=== PATIENT | female | born 1995 | race Caucasian/White ===

== ENCOUNTER → 2017-02-11 19:00 | Observation (INO) ==
[2017-02-11 17:45] LABS: Amphetamine Screen,Urine Negative ng/mL (Cutoff=1000); Barbiturate Screen,Urine Negative ng/mL (Cutoff=200); Benzodiazepines Screen,Urine Negative ng/mL (Cutoff=200); Cannabinoid Screen,Urine Negative ng/mL (Cutoff = 50); Cocaine Screen,Urine Negative ng/mL (Cutoff= 300); Opiate Screen,Urine Negative ng/mL (Cutoff=300); Phencyclidine Screen,Urine Negative ng/mL (Cutoff=25)
--- NOTE | 2017-02-11 17:48 | OB/GYN Progress Note ---
Date of Encounter: 02/11/17 Time of Encounter: 17:42 - Assessment and Plan (1) Uterine contractions during Current Visit: Yes Status: Acute Patient with reassuring and reactive heart tracing. -We will monitor for cervical changes. -If cervical changes are progressive, we will admit to labor and delivery. -Urine drug screen (2) 38 weeks gestation of Current Visit: Yes Status: Acute Subjective - Subjective Principal diagnosis: Contractions/Cramps Interval history: 21 yo at [id number] presents with lower abdominal cramping and contractions. She reports movement. She denies vaginal bleeding or loss of fluid. She does report a headache, however, she denies any elevations in blood pressure. She denies any right upper quadrant pain or visual disturbances. She denies nausea vomiting, fever, or chills. He denies dysuria. Patient is group B strep negative. Hepatitis B surface antigen negative HIV nonreactive Treponema pallidum negative -Rubella non-immune -Varicella-zoster non-immune -A positive, negative antibody screen. Antepartum ROS: movement normal, contractions, no loss of fluid, no vaginal bleeding Objective - Vital Signs Vital Signs: Intake and Output 02/11/17 02/11/17 02/11/17 07:59 15:59 23:59 Other: Weight 94.347 kg Patient Weight 02/11/17 23:59 Weight 94.347 kg - Exam FHR: category 1 FHR comments: Heart tracing baseline 145, moderate variability with 15 x 15 accelerations. Auscultation: bilateral: normal Abdomen: Present: normal appearance, soft, gravid Cervical dilation: 3 Cervix effacement: 80 station: -1
== END | disposition home or self-care (01) ==
LOC: 1NENULAB
PROVIDERS: ADMIT Student in an Organized Health Care Education/Training Program; ATTEND Student in an Organized Health Care Education/Training Program

== ENCOUNTER 2017-02-14 02:18 | Inpatient (IN) ==
[2017-02-14] MEDS ORDERED: *HR* Nalbuphine 20 MG/ML AMPUL IVP PRN (04:28)
[2017-02-14] MEDS ORDERED: Famotidine 20 MG/2 ML VIAL IVP PRN (04:28)
[2017-02-14] MEDS ORDERED: Metoclopramide 10 MG/2 ML VIAL IVP PRN (04:28)
[2017-02-14] MEDS ORDERED: Naloxone 0.4 MG/ML INJ IVP PRN (04:28)
[2017-02-14] MEDS ORDERED: miSOPROStol 25 MCG TABLET VG PRN (04:28)
[2017-02-14 05:09] LABS: Basophils % 0.3 %; Eosinophils # 0.1 K/mcL (0.0-0.6); Eosinophils % 0.8 %; Hematocrit 34.3 % (35.3-44.9); Hemoglobin 11.4 g/dL (11.5-15.4); Immature Granulocytes % 0.7 % (0-4); Lymphocytes # 2.9 K/mcL (0.6-4.6); Lymphocytes % 31.8 %; Mean Corpuscular HGB Conc 33.2 g/dL (31.6-35.5); Mean Corpuscular Hemoglobin 29.8 pg (28.0-33.3); Mean Corpuscular Volume 89.6 fL (83.0-100.0); Monocytes # 0.7 K/mcL (0.0-1.3); Monocytes % 7.8 %; Neutrophils # 5.2 K/mcL (1.6-8.9); Platelet Count 298 K/mcL (140-400); Red Blood Count 3.83 M/mcL (3.82-4.97); Red Cell Distribution Width 12.9 % (11.5-14.5); Segmented Neutrophils % 58.6 %
[2017-02-14 05:15] LABS: Amphetamine Screen,Urine Negative ng/mL (Cutoff=1000); Barbiturate Screen,Urine Negative ng/mL (Cutoff=200); Benzodiazepines Screen,Urine Negative ng/mL (Cutoff=200); Cannabinoid Screen,Urine Negative ng/mL (Cutoff = 50); Cocaine Screen,Urine Negative ng/mL (Cutoff= 300); Opiate Screen,Urine Negative ng/mL (Cutoff=300); Phencyclidine Screen,Urine Negative ng/mL (Cutoff=25)
--- NOTE | 2017-02-14 07:26 | OB/GYN History & Physical ---
Date of Encounter: 02/14/17 Time of Encounter: 07:24 Assessment and Plan (1) Encounter for planned induction of labor Current visit: Yes Status: Acute Will admit to labor and delivery for IOL/ GBS - -FHT 120 bpm baseline, category 1 tracing with accelerations 15x15 and moderate variability -PO cytotec -IV fluids -Nubain/Epidural for pain as needed -expectant management (2) 39 weeks gestation of Current visit: Yes Status: Acute History of Present Illness Chief complaint: Elective Induction of Labor HPI: Ms. Mtz is a 21 year old female at 39 weeks of gestation with no PMHx or Hx of complications during presents to [facility] for IOL. Patient is resting comfortably this AM. She denies any fluid leakage or vaginal bleeding. She states she thinks she is having contractions every 10 minutes which are not painful. She is planning to breastfeed and to receive an epidural. Patient denies headache, nausea or vomiting, visual disturbances, or dysuria. A+ Negative Antibodies GBS negative HIV negative Hep B surface antigen negative Treponema Pallidum negative Rubella non-immune Varicella non-immune Past Med Surg Social Fam HX - Past Medical History Attestation: Yes The following information was validated with the patient. Source: patient Medical history: no medical history Psychiatric history: no psych history - Past Surgical History Surgical History: other (tonsillectomy this morning) - Social History Smoking Status: Former smoker Smokeless Tobacco Status: No Alcohol use: none Drug use: none - Family History Mother Adopted: No Age: 41 Living Status: Still Living Hx Family Respiratory Disorders: Yes (asthma) Hx Family Cancer: Yes (uterine cancer) Obstetrical History - Pregnancies : 1 Para: 0 Term: 0 : 0 Ab's: 0 Livin - History/Complications History/Complications: Patient reports placental previa early in this that has since resolved. Medications and Allergies Vit Calc,Iron,Folic [ Vitamins] 1 tab PO DAILY 02/11/17 [ History] 3 Allergy/AdvReac Type Severity Reaction Status Date / Time Cefprozil Allergy Nausea Verified 02/11/17 16:56 Review of System OB All systems PM: reviewed and no additional remarkable complaints except as stated - Constitutional Constitutional ROS IM: no chills, no fever(s) - Cardiovascular Cardiovascular: no dyspnea, no lightheadedness - Respiratory Respiratory: no cough, no dyspnea - Gastrointestinal Gastrointestinal: heartburn, no abdominal pain, no nausea - Neurological Nerological: no other visual disturbances Exam - Vital Signs Vital signs: Initial Vital Signs Temp Pulse Resp BP 98.0 F 81 16 131/87 02/14/17 04:50 02/14/17 04:50 02/14/17 04:50 02/14/17 04:50 - Constitutional Constitutional: well developed, well nourished, no acute distress - HEENT HEENT: Mucus Membranes Moist - Lungs Respiratory exam: CTAB - Cardiovascular Cardiovascular exam: RRR, +S1, +S2 - Abdomen Abdomen: Present: bowel sounds normal, gravid, non tender - Extremities Extremities exam: pedal edema (mild bilaterally) Deep Tendon Reflex Grade: 2+ Normal - Cervix Dilation: 1 (per RN) Effacement: 70 (per RN) Station: -3 - Comments Comments: FHT 120 bpm baseline with moderate variability and 15x15 accelerations Results Result Diagrams: 02/14/17 04:56 Abnormal lab results Hgb 11.4 g/dL (11.5-15.4) L 02/14/17 04:56 Hct 34.3 % (35.3-44.9) L 02/14/17 04:56 All other labs normal. - VTE Reasons for not Prescribing Prophylaxis: Treatment not Indicated - Low risk for VTE
--- NOTE | 2017-02-14 07:31 | Anesthesia Evaluation PreOp ---
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: Denies Any Significant HX Other Medical History: Denies Any Significant HX Anesthesia History: No Prior Anesthetic Complications, Past Anesthesia (tonsils , bmt) : Yes (39 plus 1 g1) Alcohol Use: none Drug use: none Medications and Allergies Vit Calc,Iron,Folic [ Vitamins] 1 tab PO DAILY 02/11/17 [ History] 3 Allergy/AdvReac Type Severity Reaction Status Date / Time Cefprozil Allergy Nausea Verified 02/11/17 16:56 - Meds/Allergy Pre-op Review Medications Reviewed: Yes Allergies Reviewed: Yes Beta Blockers on Current Med List: No Anesthesia Results - Labs 02/14/17 04:56 Anesthesia Exam O2 Sat Height 1.57 m Height 1.57 m Weight 94.3 kg Weight 94.3 kg Vital Signs Temp Pulse Resp BP 98.0 F 81 16 131/87 02/14/17 04:50 02/14/17 04:50 02/14/17 04:50 02/14/17 04:50 Height: 62 Weight: 94 - HEENT Pupil (Motor): Pupils equal Mallampati: I Teeth: Normal Oral Opening: Greater than 3 - BUILDING SUPERVISOR LOC: Oriented BUILDING SUPERVISOR Motor: Normal RUE, Normal LUE, Normal RLE, Normal LLE, Normal Face BUILDING SUPERVISOR Sensory: Normal: RUE, LUE, RLE, LLE, Face - Cardiac Rhythm: Regular Murmur: None JVD: No Carotid Bruit: No - Pulmonary Breath Sounds: bilateral Clear Respiratory Effort: Symmetrical Anesthesia Assess/Plan ASA Score: 2 Modified [place] Scale for Level of Consciousness: Cooperative, oriented, and tranquil Anesthetic Plan: Regional Monitoring Plan: Standard Monitors Recovery Plan: PACU
--- NOTE | 2017-02-14 12:55 | OB Labor Progress Note ---
Date of Encounter: 02/14/17 Time of Encounter: 12:54 Labor Progress Note - Subjective Subjective: Patient resting in bed. Discussed POC with patient. Patient denies any questions or concerns. - Cervix Cervix: 3/80/-2 - Heart Tones Heart Tones: 135 bpm moderate variability +15x15 accels no decels noted. Cat. 1 tracing - [place]: irregular contractions - Interventions Interventions: SVE - Plan Plan: Will start Pitocin for labor augmentation.
[2017-02-14] MEDS ORDERED: Oxytocin 20 units/ LR 1000 mL 20 UNIT/1,000 ML BAG IVC SCH (13:00)
[2017-02-14] MEDS ORDERED: Oxytocin 20 units/ LR 1000 mL 20 UNIT/1,000 ML BAG IVC ONE (13:04)
[2017-02-14] MEDS: Ringers Solution, Lactated 1,000 ML IVC SCH ×2 (13:09→20:40)
--- NOTE | 2017-02-14 17:02 | OB Labor Progress Note ---
Date of Encounter: 02/14/17 Time of Encounter: 17:00 Labor Progress Note - Subjective Subjective: patient on the birthing ball, her ctxs are not too painful - Vital Signs Vital Signs: VSS - Cervix Cervix: 3-4cm/80% - Heart Tones Heart Tones: FHT CAT 1 - [place]: Q1-3 - Plan Plan: will hold off on AROM till further dilation, ok for epidural if patient desires, cont going up on pitocin, now @ 4
[2017-02-14] MEDS ORDERED: *HR* Ropivacaine/PF 0.2% 10 ML AMPUL ONE (19:23)
[2017-02-14] MEDS ORDERED: *HR* FentaNYL (PF) 100 MCG/2 ML VIAL ONE (19:23)
[2017-02-14] MEDS ORDERED: Epidural Premix (fent/bupiv) 110 ML EP ONE (19:23)
--- NOTE | 2017-02-14 20:19 | Anesthesia Procedures ---
Date of Encounter: 02/14/17 Time of Encounter: 19:30 Procedures: Anesthesia - Epidural/Spinal Patient ID/Chart reviewed: Yes Patient examined: Yes OB Eval: Gestational age: 39 OB Eval: : 1 OB Eval: Dilated at (cm): 5 OB Eval: Contractions: Non-stressed pattern Consent Obtained: Yes Supplemental Oxygen: None/Room Air Site Prep: Aseptic Technique Patient position: upright Local Anesthetic: Lidocaine 1% Amount of Local Anesthetic used: 3 Touhy Needle Gauge: 18 Touhy Needle Depth (cm): 9 Catheter Depth at Skin (cm): 14 Test Dose (1.5% Lido + Epi): Volume given (mls): 3 Test Dose Result: Negative Loading Dose: Fentanyl (mcg): 100 Loading Dose: Other: 5ml 0.2% ropivicaine, 3ml nss Loading Dose Administered: Thru Touhy Needle Infusion Med: 0.125% Bupivacaine w/ 2 mcg/ml Fentanyl Infusion Rate (mls/hr): [address]: Tegaderm Interspace Used: L3-L4 Loss of Resistance (RJ): Yes Blood: No CSF: No Paresthesia: No Procedure: L3-4 aseptically after multiple passes and failed attempt at L2-3. Good RJ, denied parasthesias, no blood, no heme. FHR unchanged.
--- NOTE | 2017-02-15 01:09 | OB Labor Progress Note ---
Date of Encounter: 02/15/17 Time of Encounter: 01:06 Labor Progress Note - Subjective Subjective: patient fully dilated, heart rate decel that has now resolved with positioning and stopping pitocin - Vital Signs Vital Signs: BP in the mild range, will draw labs PP - Cervix Cervix: fully dilated - Heart Tones Heart Tones: 135/mod albino/+acels/late decel - [place]: Q 1 min - Plan Plan: start pushing, anticipate
[2017-02-15] MEDS ORDERED: *HR* Ropivacaine/PF 0.2% 10 ML AMPUL ONE (02:20)
[2017-02-15] MEDS ORDERED: Epidural Premix (fent/bupiv) 110 ML EP ONE (02:26)
--- NOTE | 2017-02-15 04:01 | OB Labor Progress Note ---
Date of Encounter: 02/15/17 Time of Encounter: 04:00 Labor Progress Note - Subjective Subjective: patient sleeping - Vital Signs Vital Signs: VSS - Cervix Cervix: +1 station - Heart Tones Heart Tones: FHT CAT - Plan Plan: patient labored down, ok to start pushing, anticipate
[2017-02-15] MEDS ORDERED: Lidocaine 1% 20 ML MDV ONE (06:57)
--- NOTE | 2017-02-15 07:52 | OB/GYN Procedure Note ---
Delivery - Delivery Date: 02/15/17 Provider: Igor Ricks Intrapartum events: none, meconium Delivery induction: oxytocin, misoprostol Delivery augmentation: rupture of membranes Delivery monitor: external FHT, external uterine Anesthesia: epidural Estimated Blood Loss: 400 - Repair Episiotomy: none Laceration Description: Perineal - 2nd Degree - Complications Delivery complications: none - Disposition Mom disposition: stable in LDR disposition: stable in LDR - Comments Comments: 21 y/o now delivered a viable female infant via VAVD /2 CAT 2 tracing, weight 7lbs 12oz @ 0727hrs, infant delivered direct OP and resolved to ROP, no nuchal cord, mec noted, placenta delivered @ 0732hrs, 2nd degree perineal laceration repaired with 3-0 vicryl, EBL 400cc, APGARs 6/7, mother and doing very well.
[2017-02-15] MEDS ORDERED: Measles/Mumps/Rubella Vacc 0.5 ML VIAL SQ PRN (07:53)
[2017-02-15] MEDS ORDERED: *HR* HYDROcodone/Acet 5/325 mg TABLET PO PRN (07:53)
[2017-02-15] MEDS ORDERED: Ibuprofen 600 MG TABLET PO PRN (07:53)
[2017-02-15] MEDS ORDERED: *HR* Oxytocin 10 UNIT/ML VIAL IM ONE (07:57)
[2017-02-15] MEDS ORDERED: Ibuprofen 600 MG TABLET PO ONE (07:57)
[2017-02-15] MEDS ORDERED: Oxytocin 20 units/ LR 1000 mL 20 UNIT/1,000 ML BAG IVC SCH (08:00)
[2017-02-15] MEDS ORDERED: Prenatal Vit/FA 1 EACH TABLET PO SCH (09:00)
[2017-02-16 06:53] LABS: Basophils % 0.1 %; Eosinophils # 0.1 K/mcL (0.0-0.6); Eosinophils % 0.7 %; Hematocrit 25.9 % (35.3-44.9); Immature Granulocytes % 0.4 % (0-4); Lymphocytes # 2.6 K/mcL (0.6-4.6); Lymphocytes % 25.4 %; Mean Corpuscular HGB Conc 33.2 g/dL (31.6-35.5); Mean Corpuscular Volume 90.2 fL (83.0-100.0); Mean Platelet Volume 10.8 fL (9.4-12.4); Monocytes # 0.7 K/mcL (0.0-1.3); Monocytes % 7.2 %; Neutrophils # 6.7 K/mcL (1.6-8.9); Platelet Count 168 K/mcL (140-400); Red Blood Count 2.87 M/mcL (3.82-4.97); Red Cell Distribution Width 13.3 % (11.5-14.5); Segmented Neutrophils % 66.2 %
[2017-02-16 06:54] LABS: Hemoglobin 8.6 g/dL (11.5-15.4)
[2017-02-16 08:26] VITALS: BP 118/61
--- NOTE | 2017-02-16 09:11 | Discharge Summary ---
Date of Encounter: 02/16/17 Time of Encounter: 09:08 - Discharge Diagnosis (1) Vaginal delivery Priority: Primary Status: Acute (2) 39 weeks gestation of Priority: Primary Status: Resolved - Discharge Medications Prescriptions: Breast Pump [BREAST PUMP] 1 each PERCUT AD #1 each Home Medications: Vit Calc,Iron,Folic [ Vitamins] 1 tab PO DAILY 02/11/17 [ History] Breast Pump [BREAST PUMP] 1 each PERCUT AD #1 each 02/16/17 [Rx] Allergies/Adverse Reactions: 3 Allergy/AdvReac Type Severity Reaction Status Date / Time Cefprozil Allergy Nausea Verified 02/11/17 16:56 Data Procedures and tests throughout hospitalization: Laboratory Tests 02/14/17 02/14/17 02/16/17 04:56 04:56 06:35 WBC 9.0 10.1 RBC 3.83 2.87 L Hgb 11.4 L 8.6 L D Hct 34.3 L 25.9 L MCV 89.6 90.2 MCH 29.8 30.0 MCHC 33.2 33.2 RDW 12.9 13.3 Plt Count 298 168 MPV 11.0 10.8 Immature Gran % 0.7 0.4 Seg Neutrophils % 58.6 66.2 Lymphocytes % 31.8 25.4 Monocytes % 7.8 7.2 Eosinophils % 0.8 0.7 Basophils % 0.3 0.1 Neutrophils # 5.2 6.7 Lymphocytes # 2.9 2.6 Monocytes # 0.7 0.7 Eosinophils # 0.1 0.1 Basophils # 0.0 0.0 Urine Opiates Screen Negative Ur Barbiturates Screen Negative Ur Phencyclidine Scrn Negative Ur Amphetamines Screen Negative U Benzodiazepines Scrn Negative Urine Cocaine Screen Negative U Marijuana (THC) Screen Negative Labs on day of discharge: Labs from last 24 hours 02/16/17 06:35 WBC 10.1 RBC 2.87 L Hgb 8.6 L D Hct 25.9 L MCV 90.2 MCH 30.0 MCHC 33.2 RDW 13.3 Plt Count 168 MPV 10.8 Immature Gran % 0.4 Seg Neutrophils % 66.2 Lymphocytes % 25.4 Monocytes % 7.2 Eosinophils % 0.7 Basophils % 0.1 Neutrophils # 6.7 Lymphocytes # 2.6 Monocytes # 0.7 Eosinophils # 0.1 Basophils # 0.0 Date of admission: 02/14/17 02:18 Primary care physician: PCP NONE Discharging clinician: Jacquelin Hamm Anticipated date of discharge: 02/16/17 - Patient Status Disposition: Home, Self-Care Condition: Good Functional capacity at discharge: independent ambulation Overall status at discharge: patient is progressing back to baseline - Discharge Instructions Follow Up With: Igor Ricks MD [Partnered Physician] - - Diet and Activity Activity: resume usual activities as tolerated Diet: advance to your usual diet Hospital Course Reason for admission: induction of labor, IUP at term Delivery: Episiotomy: none Laceration: 2nd degree Other procedures: none complications: none Discharge diagnosis: IUP at term delivered baby: female Time Attestation: Total time spent providing and/or coordinating discharge services: Time Spent: Less than 30 minutes Exam - Constitutional Vitals: Temp Pulse Resp BP Pulse Ox 97.9 F 56 16 118/61 100 02/16/17 07:40 02/16/17 07:40 02/16/17 07:40 02/16/17 07:40 02/16/17 03:25 General appearance IM: A&O X 3, no acute distress - Respiratory Respiratory exam: Present: CTAB. Absent: respiratory distress - Cardiovascular Cardiovascular exam IM: Present: RRR. Absent: irregular rhythm - GI/Abdominal GI/Abdominal exam IM: normal bowel sounds - Uterine Tone: Firm Uterus Position: At Umbilicus - Extremities Exam Extremities exam IM: Absent: calf tenderness
== END 2017-02-16 11:21 | disposition home or self-care (01) | DRG 560 ==
LOC: 1NENULAB 02:18 → 1NENUOBS 02-15 10:01
PROVIDERS: ADMIT Student in an Organized Health Care Education/Training Program; ATTEND Student in an Organized Health Care Education/Training Program

== ENCOUNTER 2018-09-16 11:18 | Inpatient (IN) ==
[2018-09-16] MEDS ORDERED: *HR* Nalbuphine 10 MG/ML AMPUL IVP PRN (11:31)
[2018-09-16] MEDS ORDERED: Naloxone 0.4 MG/ML INJ IVP PRN (11:31)
[2018-09-16] MEDS ORDERED: Ondansetron 4 MG/2 ML VIAL IVP PRN (11:31)
[2018-09-16] MEDS ORDERED: Famotidine 20 MG/2 ML VIAL IVP PRN (11:31)
[2018-09-16] MEDS ORDERED: Lidocaine 1% 20 ML MDV INFILT PRN (11:31)
[2018-09-16] MEDS ORDERED: Metoclopramide 10 MG/2 ML VIAL IVP PRN (11:31)
[2018-09-16] MEDS ORDERED: Ringers Solution, Lactated 1,000 ML IVC SCH (11:45)
[2018-09-16] MEDS ORDERED: Oxytocin 20 units/ LR 1000 mL 20 UNIT/1,000 ML BAG IVC ONE (11:45)
[2018-09-16] MEDS ORDERED: Ringers Solution, Lactated 1,000 ML ONE (11:46)
[2018-09-16 11:58] LABS: Basophils % 0.2 %; Eosinophils # 0.1 K/mcL (0.0-0.6); Eosinophils % 0.7 %; Hematocrit 35.8 % (35.3-44.9); Hemoglobin 11.7 g/dL (11.5-15.4); Immature Granulocytes % 0.9 % (0-4); Lymphocytes # 2.2 K/mcL (0.6-4.6); Lymphocytes % 25.1 %; Mean Corpuscular HGB Conc 32.7 g/dL (31.6-35.5); Mean Corpuscular Hemoglobin 29.1 pg (28.0-33.3); Mean Corpuscular Volume 89.1 fL (83.0-100.0); Mean Platelet Volume 10.5 fL (9.4-12.4); Monocytes # 0.8 K/mcL (0.0-1.3); Monocytes % 9.1 %; Neutrophils # 5.6 K/mcL (1.6-8.9); Platelet Count 225 K/mcL (140-400); Red Blood Count 4.02 M/mcL (3.82-4.97); Red Cell Distribution Width 13.6 % (11.5-14.5); White Blood Count 8.8 K/mcL (4.3-11.1)
[2018-09-16] MEDS ORDERED: *HR* Ropivacaine/PF 0.2% 20 ML VIAL ONE (11:59)
[2018-09-16] MEDS ORDERED: *HR* FentaNYL (PF) 100 MCG/2 ML VIAL ONE (11:59)
--- NOTE | 2018-09-16 12:02 | OB/GYN History & Physical ---
Date of Encounter: 09/16/18 Time of Encounter: 12:01 Assessment and Plan (1) Type A blood, Rh positive Current visit: Yes Status: Acute (2) SROM (spontaneous rupture of membranes) Current visit: Yes Status: Acute SROM for clear fluids shortly after arrival to unit (3) Intrauterine Current visit: Yes Status: Acute (4) NST (non-stress test) reactive Current visit: No Status: Acute (5) 39 weeks gestation of Current visit: No Status: Resolved (6) Active labor at term Current visit: Yes Status: Acute Admit to L&D for observation of labor Expectant management Labs-CBC and type and screen Continuous electronic monitoring Pain management plan is epidural-may have upon request GBS negative Continuous labor support Anticipate vaginal delivery Dr. Lai is the OB on-call and is available as needed History of Present Illness Chief complaint: contractions HPI: Ms. Mtz is a 23 year old female at 39 weeks 1 days gestation with an estimated date of 09/22/18 dated by LMP. She presents to labor and delivery with complaint of regular contractions starting at 0930 this morning and increasing in frequency and strength. She was checked and found to be 5 cm. She has been followed by Dr. Ricks throughout her . Her has been uncomplicated. records are available electronically and have been reviewed. Labs: A+ GBS- HIV- Hep B- T. Palladium- GC/CL- Rubella immune Varicella nonimmune Past Med Surg Social Fam HX - Past Medical History Medical history: no medical history Psychiatric history: no psych history - Past Surgical History Surgical History: other Additional surgical history: t&a - Social History Smoking Status: Former smoker Smokeless Tobacco Status: No Alcohol use: none Drug use: none - Family History Mother Adopted: No Living Status: Still Living Hx Family Respiratory Disorders: Yes (asthma) Hx Family Cancer: Yes (uterine cancer) Obstetrical History - Pregnancies : 3 Para: 1 Term: 1 (# 1: 02/15/2017,female, normal spontaneous vaginal delivery (), full term, long labor vacuum used, 7lbs 12oz. ) : 0 Ab's: 1 (# 2: 10/2017 SAB ) Livin Medications and Allergies Pnv95/Ferrous Fumarate/FA [ Vitamin Tablet] 1 tab PO DAILY 05/24/18 [History] Allergy/AdvReac Type Severity Reaction Status Date / Time Cefprozil AdvReac Nausea Verified 09/16/18 11:41 Review of System OB All systems PM: reviewed and no additional remarkable complaints except as stated Exam - Constitutional Constitutional: well developed, well nourished, mild distress, morbidly obese - HEENT HEENT: PERRL, Normocephaly, Mucus Membranes Moist - Neck Neck exam: full ROM - Lungs Respiratory exam: CTAB - Cardiovascular Cardiovascular exam: RRR, +S1, +S2 - Breasts Breast: bilateral: normal - Abdomen Abdomen: Present: gravid, non tender - Extremities Extremities exam: full ROM, normal capillary refill, normal inspection, radial pulses palpable and symmetrical - Vulva Vulva: bilateral: normal - Vagina Vagina: Present: normal moisture - Cervix Dilation: 6 (per RN) Effacement: 100 Station: -1 - Uterus Uterus exam: Present: normal size - Adnexa Adnexa: bilateral: normal - Anus/Rectum Anus/Rectum: Present: normal perianal skin Results Result Diagrams: 09/16/18 11:40 All other labs normal. - VTE Reasons for not Prescribing Prophylaxis: Treatment not Indicated - Low risk for VTE
[2018-09-16 12:07] LABS: Amphetamine Screen,Urine Negative ng/mL (Cutoff=1000); Barbiturate Screen,Urine Negative ng/mL (Cutoff=200); Benzodiazepines Screen,Urine Negative ng/mL (Cutoff=200); Cannabinoid Screen,Urine Negative ng/mL (Cutoff = 50); Cocaine Screen,Urine Negative ng/mL (Cutoff= 300); Opiate Screen,Urine Negative ng/mL (Cutoff=300); Phencyclidine Screen,Urine Negative ng/mL (Cutoff=25)
[2018-09-16] MEDS ORDERED: *HR* FentaNYL (PF) 100 MCG/2 ML VIAL EP ONE (12:20)
[2018-09-16] MEDS ORDERED: *HR* Ropivacaine/PF 0.2% 20 ML VIAL EP ONE (12:20)
[2018-09-16] MEDS ORDERED: Epidural Premix (fent/bupiv) 110 ML EP ONE (12:21)
[2018-09-16] MEDS ORDERED: Epidural Premix (fent/bupiv) 110 ML EP SCH (12:30)
--- NOTE | 2018-09-16 12:30 | Anesthesia Evaluation PreOp ---
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: Denies Any Significant HX Other Medical History: GERD Anesthesia History: No Prior Anesthetic Complications, Past Anesthesia (erik, tonsil) : Yes Test: Positive Alcohol Use: none Drug use: none Medications and Allergies Pnv95/Ferrous Fumarate/FA [ Vitamin Tablet] 1 tab PO DAILY 05/24/18 [History] Allergy/AdvReac Type Severity Reaction Status Date / Time Cefprozil AdvReac Nausea Verified 09/16/18 11:41 - Meds/Allergy Pre-op Review Medications Reviewed: Yes Allergies Reviewed: Yes Beta Blockers on Current Med List: No Anesthesia Results - Labs 09/16/18 11:40 Anesthesia Exam 120/80 73 16 fht 156 Height: 5'2" Weight: 100 NPO (# of Hours): 2 Pain Scale: 8 Pain Scale Used: Numeric (1 - 10) - HEENT Pupil (Motor): Pupils equal Mallampati: II Teeth: Normal Oral Opening: Greater than 3 - INTERIOR ASSEMBLIES DEVELOPER [place]OVER LOC: Oriented INTERIOR ASSEMBLIES DEVELOPER [place]OVER Motor: Normal RUE, Normal LUE, Normal RLE, Normal LLE, Normal Face INTERIOR ASSEMBLIES DEVELOPER [place]OVER Sensory: Normal: RUE, LUE, RLE, LLE, Face - Cardiac Rhythm: Regular Murmur: None - Pulmonary Breath Sounds: bilateral Clear Respiratory Effort: Symmetrical Anesthesia Assess/Plan ASA Score: 2 Level of consciousness: Cooperative Anesthetic Plan: Epidural (risks discussed, questions answered, consented) Autologous Blood: No Monitoring Plan: Standard Monitors Recovery Plan: Other
--- NOTE | 2018-09-16 12:32 | Anesthesia Procedures ---
Date of Encounter: 09/16/18 Time of Encounter: 12:30 Procedures: Anesthesia - Epidural/Spinal Patient ID/Chart reviewed: Yes Patient examined: Yes OB Eval: Gestational age: 39 OB Eval: : 3 OB Eval: Hx Para: 1 OB Eval: Dilated at (cm): 8 OB Eval: Contractions: Non-stressed pattern Consent Obtained: Yes Supplemental Oxygen: None/Room Air Site Prep: Aseptic Technique, 0.5% Chlorhexidine/Alcohol Patient position: upright Local Anesthetic: Lidocaine 1% Amount of Local Anesthetic used: 3 Touhy Needle Gauge: 18 Touhy Needle Depth (cm): 8 Catheter Depth at Skin (cm): 15 Test Dose (1.5% Lido + Epi): Volume given (mls): 3 Test Dose Result: Negative Loading Dose: Fentanyl (mcg): 100 Loading Dose: Other: ropivicaine 0.2% 5cc Loading Dose Administered: Thru Touhy Needle Infusion Med: 0.125% Bupivacaine w/ 2 mcg/ml Fentanyl Infusion Rate (mls/hr): 15 (pcea 5cc q30") Catheter Secured in Place: Tegaderm Interspace Used: L2-L3 Loss of Resistance (RJ): Yes Blood: No CSF: No Paresthesia: No Procedure: aseptic, jessica well, VSS, effective Vitals + FHT's: 115/78 88 16 fht 165
--- NOTE | 2018-09-16 13:07 | OB/GYN Procedure Note ---
Delivery - Delivery Date: 09/16/18 Provider: Ayse Jaquez Intrapartum events: meconium (terminal) Delivery induction: none Delivery monitor: external FHT, external uterine Anesthesia: epidural Quantitated Blood Loss: 100 - Infant (s) A Infant Delivery Date: 09/16/18 Delivery Time: 12:39 Presentation: vertex Position: SADIE Route of delivery: Gender: Male Viability: Viable Pounds: 8 Ounces: 8 Weight Gram: 3.86 kg at 1 minute: 6 at 5 mins: 9 Shoulder Dystocia: not encountered Specimens collected: cord blood Placenta: spontaneous Cord: nuchal cord, 3 umbilical vessels, delivered through nuchal - Repair Episiotomy: none Laceration Description: None - Complications Delivery complications: none Delivery comments: This is a 23 year old G3 now P2012 who was admitted for active labor. She progressed spontaneously to the second stage of labor. She pushed for about 6 minutes. She delivered a viable, male , "Mary", SADIE over an intact perineum. A nuchal cord was identified. It could reduced and so it was delivered through. A shoulder dystocia was not encountered. The was placed on the maternal abdomen and appeared stunned. He was floppy and had no respiratory effort. Stimulation was provided for 30 seconds without response. Nursery was called to bedside. The bedside nurse and the wafer fabricator then moved to blow-by which elicited tone and respiratory effort response. The heart rate never dropped below 140 bpm. The cord was double clamped by wafer fabricator after pulsations ceased and cut by FOB. scores were 6 at 1 minute and 9 at 5 minutes. The infant weighed 8lbs 8oz (3860g). The placented delivered spontaneously, intact (Maciel) with a 3-vessel cord. Inspection revealed an intact perineum. The uterus was firm with no active bleeding. EBL was 100 mL. Placenta and umbilical artery blood gases were not sent. There were no complications during the procedure. Mom and baby are skin to skin following delivery. - Disposition Mom disposition: stable in LDR Branch disposition: stable in LDR
[2018-09-16] MEDS ORDERED: Ibuprofen 600 MG TABLET PO PRN (13:15)
[2018-09-16] MEDS ORDERED: Benzocaine/Menthol 56 GM AEROSOL SPRAY TP PRN (13:15)
[2018-09-16] MEDS ORDERED: Oxytocin 20 units/ LR 1000 mL 20 UNIT/1,000 ML BAG IVC SCH (13:15)
[2018-09-17] MEDS ORDERED: Prenatal Vit/FA 1 EACH TABLET PO SCH (09:00)
[2018-09-17] MEDS: Acetaminophen 325 MG TABLET PO PRN ×2 (09:08→09:11)
[2018-09-17 09:48] VITALS: BP 129/73
--- NOTE | 2018-09-17 11:13 | Discharge Summary ---
Date of Encounter: 09/17/18 Time of Encounter: 11:07 - Discharge Diagnosis (1) Vaginal delivery Priority: Primary Status: Acute Comments: Patient meeting day one milestones. Pain well-controlled with prescribed medications. Voiding without difficulty, tolerating regular diet, bleeding light. No bowel movement yet. Anticipate discharge today. - Discharge Medications Prescriptions: New Acetaminophen [Tylenol] 650 mg PO Q6HR PRN tablet PRN Reason: Mild Pain Ibuprofen [Motrin] 600 mg PO Q6HR PRN #60 tablet PRN Reason: Cramping Benzocaine/Menthol [place] [Dermoplast [place]] 1 appl TP QID PRN aerosol PRN Reason: See Comments Docusate [Colace] 100 mg PO BID capsule Continued Pnv95/Ferrous Fumarate/FA [ Vitamin Tablet] 1 tab PO DAILY Home Medications: Pnv95/Ferrous Fumarate/FA [ Vitamin Tablet] 1 tab PO DAILY 05/24/18 [History] Acetaminophen [Tylenol] 650 mg PO Q6HR PRN tablet 09/17/18 [Rx] Benzocaine/Menthol [place] [Dermoplast [place]] 1 appl TP QID PRN aerosol 09/17/18 [Rx] Docusate [Colace] 100 mg PO BID capsule 09/17/18 [Rx] Ibuprofen [Motrin] 600 mg PO Q6HR PRN #60 tablet 09/17/18 [Rx] Allergies/Adverse Reactions: Allergy/AdvReac Type Severity Reaction Status Date / Time Cefprozil AdvReac Nausea Verified 09/16/18 11:41 Data Procedures and tests throughout hospitalization: Laboratory Tests 09/16/18 09/16/18 11:40 11:40 WBC 8.8 RBC 4.02 Hgb 11.7 Hct 35.8 MCV 89.1 MCH 29.1 MCHC 32.7 RDW 13.6 Plt Count 225 MPV 10.5 Immature Gran % 0.9 Seg Neutrophils % 64.0 Lymphocytes % 25.1 Monocytes % 9.1 Eosinophils % 0.7 Basophils % 0.2 Neutrophils # 5.6 Lymphocytes # 2.2 Monocytes # 0.8 Eosinophils # 0.1 Basophils # 0.0 Urine Opiates Screen Negative Ur Barbiturates Screen Negative Ur Phencyclidine Scrn Negative Ur Amphetamines Screen Negative U Benzodiazepines Scrn Negative Urine Cocaine Screen Negative U Marijuana (THC) Screen Negative Ur Drug Screen Interp See Below Labs on day of discharge: Labs from last 24 hours 09/16/18 09/16/18 11:40 11:40 WBC 8.8 RBC 4.02 Hgb 11.7 Hct 35.8 MCV 89.1 MCH 29.1 MCHC 32.7 RDW 13.6 Plt Count 225 MPV 10.5 Immature Gran % 0.9 Seg Neutrophils % 64.0 Lymphocytes % 25.1 Monocytes % 9.1 Eosinophils % 0.7 Basophils % 0.2 Neutrophils # 5.6 Lymphocytes # 2.2 Monocytes # 0.8 Eosinophils # 0.1 Basophils # 0.0 Urine Opiates Screen Negative Ur Barbiturates Screen Negative Ur Phencyclidine Scrn Negative Ur Amphetamines Screen Negative U Benzodiazepines Scrn Negative Urine Cocaine Screen Negative U Marijuana (THC) Screen Negative Ur Drug Screen Interp See Below Date of admission: 09/16/18 11:18 Primary care physician: PCP MARILYN Consults: 09/16/18 13:15 Consult to [employer] [CONS] Routine Comment: Vaginal delivery, consult needed Discharging clinician: Monae Bo Anticipated date of discharge: 09/17/18 - Patient Status Disposition: Home, Self-Care Condition: Good Functional capacity at discharge: independent ambulation Overall status at discharge: patient is progressing back to baseline - Discharge Instructions Follow Up With: NONE,PCP [Primary Care Provider] - Igor Ricks MD [Partnered Physician] - - Diet and Activity Activity: resume usual activities as tolerated Diet: regular diet Hospital Course Reason for admission: active labor, rupture of membranes Delivery: Episiotomy: none Laceration: none Other procedures: none complications: none Discharge diagnosis: IUP at term delivered [place] baby: male Hospital course: Delivery Date: 09/16/18 Provider: Ayse Jaquez Intrapartum events: meconium (terminal) Delivery induction: none Delivery monitor: external FHT, external uterine Anesthesia: epidural Quantitated Blood Loss: 100 - Infant (s) Infant A Delivery Date: 09/16/18 Infant Delivery Time: 12:39 Presentation: vertex Position: SADIE Route of delivery: Gender: Male Viability: Viable Pounds: 8 Ounces: 8 Weight Gram: 3.86 kg at 1 minute: 6 at 5 mins: 9 Shoulder Dystocia: not encountered Specimens collected: cord blood Placenta: spontaneous Cord: nuchal cord, 3 umbilical vessels, delivered through nuchal - Repair Episiotomy: none Laceration Description: None - Complications Delivery complications: none Delivery comments: This is a 23 year old G3 now P2012 who was admitted for active labor. She progressed spontaneously to the second stage of labor. She pushed for about 6 minutes. She delivered a viable, male , "Mary", SADIE over an intact perineum. A nuchal cord was identified. It could reduced and so it was delivered through. A shoulder dystocia was not encountered. The infant was placed on the maternal abdomen and appeared stunned. He was floppy and had no respiratory effort. Stimulation was provided for 30 seconds without response. Nursery was called to bedside. The bedside nurse and the waxer tender then moved to blow-by which elicited tone and respiratory effort response. The heart rate never dropped below 140 bpm. The cord was double clamped by waxer tender after pulsations ceased and cut by FOB. scores were 6 at 1 minute and 9 at 5 minutes. The weighed 8lbs 8oz (3860g). The placented delivered spontaneously, intact ([place]) with a 3-vessel cord. Inspection revealed an intact perineum. The uterus was firm with no active bleeding. EBL was 100 mL. Placenta and umbilical artery blood gases were not sent. There were no complications during the procedure. Mom and baby are skin to skin following delivery. - Disposition Mom disposition: stable in LDR [place] disposition: stable in LDR Time Attestation: Total time spent providing and/or coordinating discharge services: Time Spent: Less than 30 minutes Exam - Constitutional Vitals: Temp Pulse Resp BP Pulse Ox 98.7 F 65 16 129/73 96 09/17/18 09:47 09/17/18 09:47 09/17/18 09:47 09/17/18 09:47 09/17/18 04:04 General appearance IM: A&O X 3, pleasant, no acute distress, answers questions appropriately - Respiratory Respiratory exam: Present: CTAB. Absent: respiratory distress - Cardiovascular Cardiovascular exam IM: Present: RRR. Absent: irregular rhythm - GI/Abdominal GI/Abdominal exam IM: normal bowel sounds Incision: normal, dry, intact - Rectal Rectal exam: deferred - Uterine Tone: Firm Uterus Position: At Umbilicus, Midline - Extremities Exam Extremities exam IM: Present: full ROM, normal capillary refill. Absent: calf tenderness - Neurological Exam Neurological exam: alert, oriented X3
== END 2018-09-17 14:55 | disposition home or self-care (01) | DRG 560 ==
LOC: 1NENULAB → OBSVTOIN 11:18 → 1NENUOBS 15:29
PROVIDERS: ADMIT Advanced Practice Midwife; ATTEND Advanced Practice Midwife